=== PATIENT | female | born 1975 | race Hispanic/Latino ===

== ENCOUNTER 2024-04-06 19:59 | Emergency (ER) | payer OTHER ==
[2024-04-06] MEDS ORDERED: KETOROLAC 30 MG/ML INJ ONE (20:34)
[2024-04-06] MEDS ORDERED: METOCLOPRAMIDE 10 MG/2mL INJ ONE (20:35)
[2024-04-06] MEDS ORDERED: NA CHLORIDE 0.9% 1,000 ML ONE (20:35)
[2024-04-06] MEDS ORDERED: DIPHENHYDRAMINE 50 MG/ML VIAL ONE (20:35)
[2024-04-06] MEDS ORDERED: NA CHLORIDE 0.9% 50 ML ONE (20:35)
[2024-04-06 20:53] LABS: Absolute Eosinophils 0.1 K/uL (0-0.5); Absolute Lymphocytes (CBC) 2.2 K/uL (0.7-4.9); Absolute Monocytes 0.5 K/uL (0.1-1.3); Absolute Neutrophil 6.5 K/uL (1.8-8.0); Basophils % 0.4 % (0-1.3); Eosinophils % 0.7 % (0-4.4); Hematocrit 39.8 % (36.0-45.0); Hemoglobin 12.8 g/dL (12.0-15.0); Lymphocytes % 23.5 % (15.3-44.8); MCH 24.3 pg (27.0-35.0); MCHC 32.1 g/dL (32.0-36.0); MCV 75.9 fL (80-100); MPV 8.1 fL (7.6-11.3); Monocytes % 5.5 % (3.3-12.3); Neutrophils % 69.9 % (41.7-73.7); Platelets 281 thou/uL (152-406); RBC Red Blood Cell Count 5.25 M/uL (3.86-4.86); Red Cell Distribution Width 16.4 % (12.1-15.2)
--- NOTE | 2024-04-06 21:19 | RAD REPORT ---
EXAM DESCRIPTION: CT - Head Brain Wo Cont - 04/06/2024 8:54 pm CLINICAL HISTORY: new onset headache COMPARISON: No comparisons TECHNIQUE: Noncontrast head CT images were obtained without IV contrast. Multiplanar reformats were generated and reviewed. All CT scans are performed using dose optimization technique as appropriate and may include automated exposure control or mA/KV adjustment according to patient size. FINDINGS: No intracranial hemorrhage, mass, or edema. Midline structures are unremarkable. Normal ventricular caliber for age. Mcdonald-white matter differentiation is preserved, without evidence of acute infarct. No abnormal extra- axial fluid collections. Mastoid air cells and visualized portions of the paranasal sinuses are clear. No acute bony findings. IMPRESSION: No evidence of an acute intracranial process.
[2024-04-06 21:22] LABS: Albumin 3.6 g/dL (3.4-5.0); Albumin/Globulin Ratio 0.8 (1.1-1.8); Anion Gap 9.9 mEq/L (5.0-15.0); Bilirubin Total 0.8 mg/dL (0.2-1.0); Globulin 4.3 g/dL (2.3-3.5); Potassium 3.9 mEq/L (3.5-5.1); Protein, Total 7.9 g/dL (6.4-8.2); Thyroid Stimulating Hormone 1.23 uIU/mL (0.358-3.740)
--- NOTE | 2024-04-06 21:56 | EDPHYS ---
Physician Documentation [facility] Name: Eliane Sorto Age: 48 yrs Sex: Female : 1975 Arrival Date: 04/06/2024 Time: 19:59 Bed 20 Private MD: ED Physician Glen Walker HPI: 04/06 20:02 This 48 yrs old Female presents to ER via Unassigned with complaints of sp4 Headache. 04/07 00:27 48-year-old female presents with acute onset headache starting 4 days ago left-sided sp4 headache associated with no other symptoms. . 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 - Infectious Disease History:: Denies. - Social history:: Smoking status: Patient denies any tobacco usage or history of. - Family history:: not pertinent. ROS: 04/07 00:30 Constitutional: Negative for fever, chills, and weight loss, today for acute left-sided sp4 headache All other systems are negative, Exam: 00:30 Constitutional: This is a well developed, well nourished patient who is awake, alert, sp4 and in no acute distress. Head/Face: Normocephalic, atraumatic. Eyes: Pupils equal round and reactive to light, extra-ocular motions intact. Lids and lashes normal. Conjunctiva and sclera are not injected. Cornea within normal limits. Periorbital areas with no swelling, redness, or edema. ENT: Nares patent. No nasal discharge, no septal abnormalities noted. Tympanic membranes are normal and external auditory canals are clear. Oropharynx with no redness, swelling, or masses, exudates, or evidence of obstruction, uvula midline. Mucous membranes moist. Neck: Trachea midline, no thyromegaly or masses palpated, and no cervical lymphadenopathy. Supple, full range of motion without nuchal rigidity, or vertebral point tenderness. Chest/axilla: Normal chest wall appearance and motion. Nontender with no deformity. No lesions are appreciated. Cardiovascular: Regular rate and rhythm with a normal S1 and S2. No gallops, murmurs, or rubs. Normal PMI, no JVD. No pulse deficits. Respiratory: Lungs have equal breath sounds bilaterally, clear to auscultation and percussion. No rales, rhonchi or wheezes noted. No increased work of breathing, no retractions or nasal flaring. Abdomen/GI: Soft, with normal bowel sounds. No distension or tympany. No guarding or rebound. No evidence of tenderness throughout. Back: No spinal tenderness. No costovertebral tenderness. Skin: Warm, dry with normal turgor. Normal color with no rashes, no lesions, and no evidence of cellulitis. MS/ Extremity: Pulses equal, no cyanosis. Neurovascular intact. Full, normal range of motion. Neuro: Awake and alert, GCS 15, oriented to person, place, time, and situation. Cranial nerves II-XII grossly intact. Motor strength 5/5 in all extremities. Sensory grossly intact. Psych: Awake, alert, with orientation to person, place and time. Behavior, mood, and affect are within normal limits Vital Signs: 04/06 20:08 BP 135 / 99; Pulse 89; Resp 18; Temp 99.2; Pulse Ox 99% on R/A; Weight 81.65 kg; Height kj2 5 ft. 1 in. ; Pain 8/10; 21:36 BP 113 / 87; Pulse 86; Resp 18; Pulse Ox 99% ; vc1 22:32 BP 117 / 92; Pulse 69; Resp 18; Pulse Ox 99% ; vc1 20:08 Body Mass Index 34.01 (81.65 kg, 154.94 cm) kj2 20:08 Pain Scale: Adult kj2 Estefanía Coma Score: 04/07 00:30 Eye Response: spontaneous(4). Motor Response: obeys commands(6). Verbal Response: sp4 oriented(5). Total: 15. 00:30 Eye Response: spontaneous(4). Motor Response: obeys commands(6). Verbal Response: sp4 oriented(5). Total: 15. MDM: 04/06 20:16 Patient medically screened. sp4 21:54 ED course: EXAM DESCRIPTION: CT - Head Brain Wo Cont - 04/06/2024 8:54 pm CLINICAL sp4 HISTORY: new onset headache COMPARISON: No comparisons TECHNIQUE: Noncontrast head CT images were obtained without IV contrast. Multiplanar reformats were generated and reviewed. All CT scans are performed using dose optimization technique as appropriate and may include automated exposure control or mA/KV adjustment according to patient size. FINDINGS: No intracranial hemorrhage, mass, or edema. Midline structures are unremarkable. Normal ventricular caliber for age. Mcdonald-white matter differentiation is preserved, without evidence of acute infarct. No abnormal extra-axial fluid collections. Mastoid air cells and visualized portions of the paranasal sinuses are clear. No acute bony findings. IMPRESSION: No evidence of an acute intracranial process.. 04/07 00:30 Differential diagnosis: cluster headache, hypoglycemia, migraine, uremia, vasomotor sp4 headache. Data reviewed: vital signs, nurses notes, old medical records, lab test result(s), radiologic studies, CT scan. ED course: Is negative, patient stable for discharge home with as needed Fioricet. 04/06 20:26 Order name: CBC with Diff; Complete Time: 21:48 sp4 04/06 20:26 Order name: CMP; Complete Time: 21:48 sp4 04/06 20:27 Order name: TSH; Complete Time: 21:48 sp4 04/06 20:27 Order name: T4 Free; Complete Time: 21:48 sp4 04/06 20:26 Order name: CT Head Brain wo Cont; Complete Time: 21:48 sp4 04/06 20:26 Order name: IV Saline Lock; Complete Time: 20:43 sp4 04/06 20:26 Order name: Labs collected and sent; Complete Time: 20:43 sp4 Administered Medications: 04/06 20:48 Drug: Ketorolac IVP 30 mg IVP once Route: IVP; Site: left antecubital; vc1 21:15 Follow up: Response: No adverse reaction; Marked relief of symptoms; Pain is decreased vc1 20:48 Drug: metoCLOPramide IVP 10 mg IVP once; over 1 to 2 minutes Route: IVP; Site: left vc1 antecubital; 21:15 Follow up: Response: No adverse reaction; Marked relief of symptoms; Pain is decreased vc1 20:48 Drug: diphenhydrAMINE IVP 25 mg IVP once Route: IVP; Site: left antecubital; vc1 21:15 Follow up: Response: No adverse reaction; Marked relief of symptoms; Pain is decreased vc1 20:48 Drug: NS 0.9% IV 1000 ml IV at 1 bolus Per protocol; 1000 mL bolus Route: IV; Rate: 1 vc1 bolus; Site: left antecubital; 22:00 Follow up: IV Status: Completed infusion; IV Intake: 1000ml vc1 Disposition Summary: 04/06/24 21:55 Discharge Ordered Notes: Location: Home sp4 Problem: new sp4 Symptoms: have improved sp4 Condition: Stable sp4 Diagnosis - Migraine without aura, not intractable sp4 - New Onset Unilateral headache sp4 Followup: sp4 - With: Private Physician - When: 7 - 10 days - Reason: Recheck today's complaints Discharge Instructions: - Discharge Summary Sheet sp4 - Migraine Headache, Cffi-ug-[id number] sp4 Forms: - Patient Portal Instructions sp4 Prescriptions: - Fioricet 50-300-40 mg Oral capsule - take 1 capsule ORAL route every 6 hours PRN headaches; 30 capsule; Refills: 0, sp4 Product Selection Permitted Signatures: Dispatcher [employer] Pat Means RN RN vc1 Glen Walker MD MD sp4 Dayami Washington RN RN kj2
--- NOTE | 2024-04-06 21:56 | ER ---
Nurse's Notes [facility] Name: Eliane Sorto Age: 48 yrs Sex: Female : 1975 Arrival Date: 04/06/2024 Time: 19:59 Bed 20 Private MD: Diagnosis: Migraine without aura, not intractable;New Onset Unilateral headache Presentation: 04/06 20:08 Chief complaint: Patient states: headache that radiates to left ear and left jaw since kj2 Wednesday. Coronavirus screen: At this time, the client does not indicate any symptoms associated with coronavirus-19. Ebola Screen: No symptoms or risks identified at this time. Initial Sepsis Screen: Does the patient meet any 2 criteria? No. Patient's initial sepsis screen is negative. Does the patient have a suspected source of infection? No. Patient's initial sepsis screen is negative. Risk Assessment: Do you want to hurt yourself or someone else? Patient reports no desire to harm self or others. Onset of symptoms was April 03, 2024. 20:08 Method Of Arrival: Ambulatory kj2 20:08 Acuity: JANINE 3 kj2 Triage Assessment: 20:10 Headache History: Denies prior headaches. General: Appears in no apparent distress. kj2 Behavior is calm, cooperative. Pain: Complains of pain in headache Pain currently is 8 out of 10 on a pain scale. Neuro: Level of Consciousness is awake, alert, Oriented to person, place, time, situation. Cardiovascular: Patient's skin is warm and dry. Respiratory: Airway is patent Respiratory effort is even, unlabored. 20:10 Pain: Also complains of no other associated symptoms. 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 - Infectious Disease History:: Denies. - Social history:: Smoking status: Patient denies any tobacco usage or history of. - Family history:: not pertinent. Screenin:15 Abuse screen: Denies threats or abuse. Nutritional screening: No deficits noted. vc1 Tuberculosis screening: No symptoms or risk factors identified. 20:15 [facility] ED Fall Risk Assessment (Adult) History of falling in the last 3 months, vc1 including since admission No falls in past 3 months (0 pts) Confusion or Disorientation No (0 pts) Intoxicated or Sedated No (0 pts) Impaired Gait No (0 pts) Mobility Assist Device Used No (0 pt) Altered Elimination No (0 pt) Score/Fall Risk Level 0 - 2 = Low Risk Oriented to surroundings, Maintained a safe environment, Educated pt \\T\\ family on fall prevention, incl call for assistance when getting out of bed. Assessment: 20:15 General: Appears in no apparent distress. comfortable, slender, well groomed, well vc1 developed, well nourished, Behavior is calm, cooperative, appropriate for age. Pain: Complains of pain in left restorationism and left occipital area Pain radiates to left side of the back of head and left temporal area Pain currently is 8 out of 10 on a pain scale. Quality of pain is described as sharp, Pain began suddenly. Neuro: Level of Consciousness is awake, alert, obeys commands, Oriented to person, place, time, situation, Appropriate for age Reports headache in left parietal area, that is the "worst ever". Cardiovascular: No deficits noted. Heart tones S1 S2 present Capillary refill < 3 seconds Patient's skin is warm and dry. Respiratory: Airway is patent Respiratory effort is even, unlabored, Respiratory pattern is regular, symmetrical, Breath sounds are clear bilaterally. GI: Abdomen is round obese, Bowel sounds present X 4 quads. : No deficits noted. No signs and/or symptoms were reported regarding the genitourinary system. EENT: No deficits noted. No signs and/or symptoms were reported regarding the EENT system. Derm: Skin is intact, is healthy with good turgor, Skin is dry, Skin is normal. Musculoskeletal: Circulation, motion, and sensation intact. Range of motion: intact in all extremities. 21:35 Reassessment: Patient and/or family updated on plan of care and expected duration. Pain vc1 level reassessed. Patient is alert, oriented x 3, equal unlabored respirations, skin warm/dry/pink. Patient denies pain at this time. Patient states feeling better. Patient states symptoms have improved. 22:31 Reassessment: Patient appears in no apparent distress at this time. No changes from vc1 previously documented assessment. Patient and/or family updated on plan of care and expected duration. Pain level reassessed. Patient is alert, oriented x 3, equal unlabored respirations, skin warm/dry/pink. Vital Signs: 20:08 BP 135 / 99; Pulse 89; Resp 18; Temp 99.2; Pulse Ox 99% on R/A; Weight 81.65 kg; Height kj2 5 ft. 1 in. ; Pain 8/10; 21:36 BP 113 / 87; Pulse 86; Resp 18; Pulse Ox 99% ; vc1 22:32 BP 117 / 92; Pulse 69; Resp 18; Pulse Ox 99% ; vc1 20:08 Body Mass Index 34.01 (81.65 kg, 154.94 cm) kj2 20:08 Pain Scale: Adult kj2 Estefanía Coma Score: 04/07 00:30 Eye Response: spontaneous(4). Motor Response: obeys commands(6). Verbal Response: sp4 oriented(5). Total: 15. 00:30 Eye Response: spontaneous(4). Motor Response: obeys commands(6). Verbal Response: sp4 oriented(5). Total: 15. ED Course: 04/06 20:01 Patient arrived in ED. jj6 20:02 Glen Walker MD is Attending Physician. sp4 20:10 Triage completed. kj2 20:12 Arm band placed on right wrist. kj2 20:12 Patient placed in an exam room, on a stretcher. kj2 20:15 Patient has correct armband on for positive identification. Bed in low position. Call vc1 light in reach. Side rails up X2. Pulse ox on. NIBP on. 20:30 Pat Santos RN is Primary Nurse. vc1 20:38 Inserted saline lock: 22 gauge in left antecubital area, using aseptic technique. Blood vk collected. Flushed with 10 mL NS. 20:38 Initial lab(s) drawn, by me, sent to lab. vk 20:43 T4 Free Sent. vk 20:43 TSH Sent. vk 20:43 CBC with Diff Sent. vk 20:43 CMP Sent. vk 20:56 CT Head Brain wo Cont In Process Unspecified. EDMS 22:33 No provider procedures requiring assistance completed. IV discontinued, intact, vc1 bleeding controlled, No redness/swelling at site. Pressure dressing applied. 22:36 Provided Education on: Don't operate heavy machinery with fioricet. vc1 Administered Medications: 20:48 Drug: Ketorolac IVP 30 mg IVP once Route: IVP; Site: left antecubital; vc1 21:15 Follow up: Response: No adverse reaction; Marked relief of symptoms; Pain is decreased vc1 20:48 Drug: metoCLOPramide IVP 10 mg IVP once; over 1 to 2 minutes Route: IVP; Site: left vc1 antecubital; 21:15 Follow up: Response: No adverse reaction; Marked relief of symptoms; Pain is decreased vc1 20:48 Drug: diphenhydrAMINE IVP 25 mg IVP once Route: IVP; Site: left antecubital; vc1 21:15 Follow up: Response: No adverse reaction; Marked relief of symptoms; Pain is decreased vc1 20:48 Drug: NS 0.9% IV 1000 ml IV at 1 bolus Per protocol; 1000 mL bolus Route: IV; Rate: 1 vc1 bolus; Site: left antecubital; 22:00 Follow up: IV Status: Completed infusion; IV Intake: 1000ml vc1 Medication: 22:34 VIS not applicable for this client. vc1 Intake: 22:00 IV: 1000ml; Total: 1000ml. vc1 Outcome: 21:55 Discharge ordered by . pedro 22:34 Discharged to home ambulatory, with family, vc1 22:34 Condition: improved 22:34 Discharge instructions given to patient, Instructed on discharge instructions, follow up and referral plans. medication usage, Demonstrated understanding of instructions, follow-up care, medications, Prescriptions given X 1, 22:39 Patient left the ED. vc1 Signatures: Dispatcher [employer] EDMS Shirley [id number] Pat Santos, RN RN vc1 Glen Walker MD MD sp4 Ngozi Castro Krystal, RN RN kj2 Corrections: (The following items were deleted from the chart) 20:12 20:08 Chief complaint: Patient states: headache that radiates to left ear and left jaw kj2 kj2
[2024-04-06 22:42] VITALS: TEMP 99.2; O2SAT 99
[2024-04-06 22:46] VITALS: BP 117/92
== END 2024-04-06 22:39 | disposition home or self-care (01) ==
LOC: ER 19:59
DX: G43.009 Migraine without aura, not intractable, without status migrainosus (principal)
CPT/HCPCS: 96361; 85025; 36415; 84443; 84439; 80053; 70450; 96375; 96374; 99284; J2765; J1200; J7030